=== PATIENT | female | born 1955 | race Two or more races ===

== ENCOUNTER 2017-03-12 15:29 | Emergency (ER) | payer SELFPAY ==
[2017-03-12 15:36] VITALS: BP 188/95
[2017-03-12] MEDS ORDERED: Ketorolac INJ* 60 MG/2 ML VIAL IM ONE (16:37)
[2017-03-12] MEDS ORDERED: Cyclobenzaprine TAB* 10 MG PO ONE (16:37)
--- NOTE | 2017-03-12 16:58 | ED ---
Back Pain - HPI Summary HPI Summary: 61F presents with lower back pain for a week. She states the pain was being managed with a steroid but today was last day of steroid and pain has increased again. She denies any injury. She has never had imaging of her back before. She denies any pain or numbness or tingling into her legs. She denies any loss of bowel or bladder or saddle anesthesia. 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 She has been taking aleve for her pain. She denies any fever. - History of Current Complaint Chief Complaint: EDBackInjuryPain Stated Complaint: LOWER BACK PAIN Time Seen by Provider: 03/12/17 16:09 Pain Intensity: 10 - Allergies/Home Medications Allergies/Adverse Reactions: Allergies Allergy/AdvReac Type Severity Reaction Status Date / Time No Known Allergies Allergy Verified 04/04/14 12:57 PMH/Surg Hx/FS Hx/Imm Hx Endocrine/Hematology History: Denies: Hx Anticoagulant Therapy Respiratory History: Denies: Hx Asthma - Cancer History Hx Chemotherapy: No Hx Radiation Therapy: No Infectious Disease History: No Infectious Disease History: Denies: Traveled Outside the [place] in Last 30 Days - Family History Known Family History: Positive: Hypertension - Social History Alcohol Use: None Substance Use Type: Reports: None Smoking Status (MU): Never Smoked Tobacco Review of Systems Negative: Fever Negative: Chest Pain Negative: Shortness Of Breath Positive: Myalgia - back pain All Other Systems Reviewed And Are Negative: Yes Physical Exam Triage Information Reviewed: Yes Vital Signs On Initial Exam: Initial Vitals Temp Pulse Resp BP Pulse Ox 97.9 F 93 18 188/95 100 03/12/17 15:32 03/12/17 15:32 03/12/17 15:32 03/12/17 15:32 03/12/17 15:32 Vital Signs Reviewed: Yes Appearance: Positive: Well-Appearing - appears uncomforable Skin: Positive: Warm, Dry Head/Face: Positive: Normal Head/Face Inspection Eyes: Positive: Normal, Conjunctiva Clear Respiratory/Lung Sounds: Positive: Clear to Auscultation, Breath Sounds Present Cardiovascular: Positive: Normal, RRR Musculoskeletal: Positive: Strength/ROM Intact - lower extremity, Limited @ - back due to pain, Other - good pulses, neg SLR, patella intact, good strength lower extremity, Diagnostics - Vital Signs Vital Signs Temp Pulse Resp BP Pulse Ox 03/12/17 15:32 97.9 F 93 18 188/95 100 - Laboratory Lab Statement: Any lab studies that have been ordered have been reviewed, and results considered in the medical decision making process. - Radiology back Xray Interpretation: Positive (See Comments) - IMPRESSION: DEGENERATIVE DISC DISEASE AND OSTEOARTHRITIS, MOST PRONOUNCED AT L4-L5 AND L5-S1 Radiology Interpretation Completed By: Radiologist Back Pain Course/Dx - Course Course Of Treatment: 61F presents with back pain for one week. denies any injury. no saddle anasthesia or loss of bowel or bladdernever imaging of back so got xray shows degenerative changes. neg SLR. tender to lower back. gave toradol and flexeril and helped with pain. will have contine flexeril. patient understands and agrees with plan - Diagnoses Differential Diagnosis/HQI/PQRI: Positive: Fracture, Strain, Sprain Provider Diagnoses: Back pain Discharge - Discharge Plan Condition: Good Disposition: HOME Prescriptions: Cyclobenzaprine TAB* [Flexeril 10 MG TAB*] 10 mg PO TID PRN #9 tab PRN Reason: Pain Methylprednisolone [Medrol Dosepak 4 MG*] 4 mg PO .SEE JAYSON INSTRUCTION #1 packet Patient Education Materials: Back Pain (ED) Referrals: Radha Haque MD [Primary Care Provider] - Additional Instructions: Follow directions on package for Medrol pack Take muscle relaxers three times a day for 3 days Use ibuprofen or Tylenol for pain every 6 hours ice/heat area, move as much as possible Follow up with primary within 5 days Return to ED if unable to ambulate or develop any new or worsening symptoms
--- NOTE | 2017-03-12 17:53 | RAD ---
HISTORY: Low back pain COMPARISONS: December 12, 2007 VIEWS: 5 , Frontal, lateral, coned-down lateral sacral, and bilateral oblique views of the lumbar spine. FINDINGS: ALIGNMENT: The alignment is normal. VERTEBRAL BODIES: The vertebral body heights are normal. The interpedicular distances are normal. There is mild anterolateral osteophyte formation. JOINTS: There is facet hypertrophic change at L4-L5 and L5-S1 INTERVERTEBRAL DISCS: There is diffuse loss of intervertebral disc height. SOFT TISSUE: Unremarkable. OTHER: The pelvis is unremarkable. The lung bases are clear. IMPRESSION: DEGENERATIVE DISC DISEASE AND OSTEOARTHRITIS, MOST PRONOUNCED AT L4-L5 AND L5-S1
== END 2017-03-12 18:03 | disposition home or self-care (01) ==
LOC: ED 15:29
DX: M54.5 Low back pain (principal); M51.37 Other intervertebral disc degeneration, lumbosacral region
CPT/HCPCS: 72110; 99282; A9270-GY; J1885

== ENCOUNTER 2018-01-29 10:19 | Emergency (ER) | payer OTHER ==
[2018-01-29 10:39] VITALS: BP 165/97
[2018-01-29] MEDS ORDERED: Tetan/Diph/Pertus SYR(Tdap)* 0.5 ML SYR(BOOSTRIX) use SYR IM ONE (10:42)
--- NOTE | 2018-01-29 11:34 | RAD ---
HISTORY: Right arm pain, trauma COMPARISONS: None VIEWS: 4, Frontal internal rotation, external rotation, outlet, and axillary views of the right shoulder FINDINGS: BONE DENSITY: Normal. BONES: There is no displaced fracture. JOINTS: There is mild osteoarthritis of the right AC joint. ALIGNMENT: There is no dislocation. SOFT TISSUES: Unremarkable. OTHER FINDINGS: None. IMPRESSION: NO ACUTE OSSEOUS INJURY. IF SYMPTOMS PERSIST, RECOMMEND REPEAT IMAGING.
--- NOTE | 2018-01-29 11:35 | RAD ---
Indication: Right elbow injury. 4 views of the right elbow demonstrates no fracture. No evidence of joint effusion is noted. Posterior olecranon osteophyte formation is noted. There is irregularity in the medial epicondyles. Possibility of a fracture of the medial epicondyles should BE considered. IMPRESSION: No joint effusion is noted however irregularity is noted in the medial epicondyles fracture is not excluded.
--- NOTE | 2018-01-29 11:36 | RAD ---
HISTORY: Right arm pain, injury COMPARISONS: None VIEWS: 4, Frontal and lateral views of the right hand and wrist FINDINGS: BONE DENSITY: Normal. BONES: There is no displaced fracture. JOINTS: There is no arthropathy. ALIGNMENT: There is no dislocation. SOFT TISSUES: Unremarkable. OTHER FINDINGS: None. IMPRESSION: NO ACUTE OSSEOUS INJURY TO THE RIGHT HAND OR RIGHT WRIST. IF SYMPTOMS PERSIST, RECOMMEND REPEAT IMAGING.
--- NOTE | 2018-01-29 17:41 | UC ---
Kiko Whiting Angela, scribed for Landry Wilkes MD on 01/29/18 at 1038 . Minor Trauma HPI - HPI Summary HPI Summary: This pt is a 62 y/o female presenting to [facility] c/o right shoulder, right elbow, and right hand pain s/p fall today. Pt reports she was at work today going down the stairs when she tripped and fell about 4 steps down. She notes she fell on the right side of her body. Denies LOC or head strike. She denies neck pain or head contusion. Pt is unsure of her last tetanus shot. - History of Current Complaint Chief Complaint: UCUpperExtremity Stated Complaint: FALL INJURY Hx Obtained From: Patient Onset/Duration: Sudden Onset, Still Present Onset Of Pain: Immediate Severity Currently: Moderate Pain Intensity: 5 Pain Scale Used: 0-10 Numeric Mechanism Of Injury: Blunt Trauma, Fall From Height Of: - 4 steps Aggravating Factor(s): Nothing Alleviating Factor(s): Nothing Associated Signs And Symptoms: Positive: Other: - abrasion to right elbow. Negative: Loss Of Consciousness, Ecchymosis, Swelling - Allergies/Home Medications Allergies/Adverse Reactions: Allergies Allergy/AdvReac Type Severity Reaction Status Date / Time No Known Allergies Allergy Verified 01/29/18 10:36 PMH/Surg Hx/FS Hx/Imm Hx Other Endocrine History: DENIES: diabetes Other Cardiovascular History: DENIES: HTN GI/ History: Gastroesophageal Reflux Other History Of: Negative For: Anticoagulant Therapy - Surgical History Surgical History: Yes Surgery Procedure, Year, and Place: Hysterectomy - Family History Known Family History: Positive: Hypertension, Diabetes - Social History Alcohol Use: None Substance Use Type: None Smoking Status (MU): Never Smoked Tobacco Review of Systems Constitutional: Negative Skin: Negative Eyes: Negative ENT: Negative Respiratory: Negative Cardiovascular: Negative Gastrointestinal: Negative Genitourinary: Negative Motor: Negative Neurovascular: Negative Musculoskeletal: Other: - POS: right shoulder pain, right elbow pain, right hand pain. NEG: neck pain, head contusion Neurological: Negative Psychological: Negative All Other Systems Reviewed And Are Negative: Yes Physical Exam - Summary Physical Exam Summary: VITAL SIGNS: Reviewed. GENERAL: Patient is a well-developed and nourished female who is lying comfortable in the stretcher. Patient is not in any acute respiratory distress. HEAD AND FACE: Normocephalic EYES: PERRLA, EOMI x 2. EARS: Hearing grossly intact. MOUTH: Oropharynx within normal limits. NECK: Supple, trachea is midline, no adenopathy, no JVD, no carotid bruit. CHEST: Symmetric, no tenderness at palpation LUNGS: Clear to auscultation bilaterally. No wheezing or crackles. CVS: Regular rate and rhythm, S1 and S2 present, no murmurs or gallops appreciated. ABDOMEN: Soft, non-tender. Bowel sounds are normal. No abdominal abnormal pulsations. EXTREMITIES: Full ROM in all major joints, no edema, no cyanosis or clubbing. Tenderness over the right shoulder and right elbow. No deformity. No hematoma. Neurovascular intact. NEURO: Alert and oriented x 3. No acute neurological deficits. Speech is normal and follows commands. SKIN: Dry and warm. Abrasion on the right elbow. Triage Information Reviewed: Yes Vital Signs: Initial Vital Signs Temp 98.7 F 01/29/18 10:33 Pulse 112 01/29/18 10:33 Resp 16 01/29/18 10:33 Pulse Ox 98 01/29/18 10:33 Vital Signs Reviewed: Yes Procedures - Splinting Location: right elbow Hand-Made Type: orthoglass Pre-Proc Neuro Vasc Exam: normal Post-Proc Neuro Vasc Exam: normal Diagnostics - Radiology Right elbow XR Xray Interpretation: Positive (See Comments) - IMPRESSION: No joint effusion is noted however irregularity is noted in the medial epicondyles fracture is not excluded. Dr. Wilkes has reviewed this radiology report. Radiology Interpretation Completed By: Radiologist Right hand XR Xray Interpretation: No Acute Changes - IMPRESSION: No acute osseous injury to the right hand or right wrist. If symptoms persist, recommend repeat imaging. Dr. Wilkes has reviewed this radiology report Radiology Interpretation Completed By: Radiologist Right shoulder XR Xray Interpretation: No Acute Changes - IMPRESSION: No acute osseous injury. If symptoms persist, recommend repeat imaging. Dr. Wilkes has reviewed this radiology report. Radiology Interpretation Completed By: Radiologist Right wrist XR Xray Interpretation: No Acute Changes - IMPRESSION: No acute osseous injury to the right hand or right wrist. If symptoms persist, recommend repeat imaging. Dr. Wilkes has reviewed this radiology report. Radiology Interpretation Completed By: Radiologist Re-Evaluation - Re-Evaluation First Eval Re-Evaluation Time: 11:55 Comment: I reviewed the XR results with the pt. I placed a posterior split. Minor Trauma Course/Dx - Course Course Of Treatment: This pt is a 62 y/o female presenting to [facility] c/o right shoulder, right elbow, and right hand pain s/p fall today. Pt reports she was at work today going down the stairs when she tripped and fell about 4 steps down. She notes she fell on the right side of her body. Denies LOC or head strike. She denies neck pain or head contusion. Pt is unsure of her last tetanus shot. Right wrist and hand XR shows no acute osseous injury to the right hand or right wrist. If symptoms persist, recommend repeat imaging. Right shoulder XR shows no acute fracture or dislocation. Right elbow XR reveals no joint effusion is noted however irregularity is noted in the medial epicondyles fracture is not excluded. In the UC course the pt was given a tetanus boostrix. I placed a posterior splint on the right elbow. Pre and post procedure pt is neurovascular intact. Therefore pt will be discharged home with follow up from orthopedics for a questionable right elbow fracture. Pt was placed in a shoulder sling prior to discharge. I discussed all the findings and XR results with the patient. Pt was instructed to return to the urgent care or go to ER immediately if any of the symptoms return or worsens. Plan of care was discussed with the patient and pt understands and agrees. All questions were answered to patient satisfaction. There were no further complaints or concerns. Pt is hemodynamically stable, alert and oriented x3. The patient was found to have increased blood pressure in UC. The patient will follow up with PCP for better control of BP. - Differential Dx/Diagnosis Provider Diagnoses: Contusion. Questionable right elbow fracture Discharge - Sign-Out/Discharge Documenting (check all that apply): Discharge - discharge to home - Discharge Plan Condition: Stable Disposition: HOME Patient Education Materials: Elbow Fracture (ED), Contusion in Adults (ED), Arthralgia (ED) Forms: *Work Release Referrals: Nitin Arizmendi MD [Medical Doctor] - Radha Haque MD [Primary Care Provider] - Additional Instructions: Please follow up with orthopedics, Dr. Arizmendi. FOLLOW UP WITH YOUR PRIMARY CARE PROVIDER WITHIN ONE WEEK FOR HIGH BLOOD PRESSURE NOTED TODAY. RETURN TO URGENT CARE OR THE ED FOR ANY WORSENING OR NEW SYMPTOMS. The documentation as recorded by the Kiko vuong Angela accurately reflects the service I personally performed and the decisions made by , Landry Wilkes MD.
== END 2018-01-29 12:28 | disposition home or self-care (01) ==
LOC: UCEAST 10:19
DX: S50.01XA Contusion of right elbow, initial encounter (principal); W10.9XXA Fall (on) (from) unspecified stairs and steps, initial encounter; Y93.9 Activity, unspecified; Y92.9 Unspecified place or not applicable; M25.511 Pain in right shoulder; M79.641 Pain in right hand; M25.521 Pain in right elbow; K21.9 Gastro-esophageal reflux disease without esophagitis
CPT/HCPCS: 90715; 99212; G0463

== ENCOUNTER 2018-04-19 20:11 | Emergency (ER) | payer OTHER ==
--- NOTE | 2018-04-19 21:17 | RAD ---
INDICATION: Bilateral knee pain after a slip and fall injury COMPARISON: None TECHNIQUE: 4 view radiograph of each knee. FINDINGS: The visualized bones are well-corticated and properly aligned. The joint spaces are properly maintained. There is no radiographic evidence of joint effusion. There is no acute fracture, dislocation or other focal bony abnormality. IMPRESSION: Normal radiograph of the bilateral knees as described above. If the patient's symptoms persist, follow-up imaging is recommended.
--- NOTE | 2018-04-19 21:18 | RAD ---
Indication: Left leg pain after a slip and fall injury Comparison: None. Technique: AP and lateral views left lower leg. Report: The visualized bones are adequately corticated and well aligned. There is no acute fracture, dislocation or other focal abnormality. The soft tissues appear grossly normal. IMPRESSION: Normal left lower leg radiograph. If the patient's symptoms persist, follow-up imaging is recommended.
--- NOTE | 2018-04-19 21:18 | RAD ---
INDICATION: Right great toe pain after a slip and fall injury TECHNIQUE: 3 views of the right great toe were obtained. FINDINGS: The visualized bones are normal alignment. Joint spaces appear maintained. No fracture is seen. IMPRESSION: NO EVIDENCE FOR FRACTURE. IF THE PATIENT'S SYMPTOMS PERSIST RECOMMEND FOLLOW-UP IMAGING.
--- NOTE | 2018-04-19 21:20 | ED ---
Lower Extremity - HPI Summary HPI Summary: 62-year-old female presents with lower extremity injury after a fall today. States she was in [facility] and her cart got away from her and she slipped and ended up going a half split. She states that it pulled on her right shoulder and she's been having right hip pain. She is able to ambulate. She fell onto her knees. She has a bruise noted to her left mims. She also stubbed her right toe. no previous injury to the area. She denies any other injury. fall was mechanical fall. She is not on blood thinners. No head injury or loss consciousness. - History of Current Complaint Chief Complaint: EDGeneral Stated Complaint: FALL/PAIN Time Seen by Provider: 04/19/18 20:27 Pain Intensity: 10 - Allergies/Home Medications Allergies/Adverse Reactions: Allergies Allergy/AdvReac Type Severity Reaction Status Date / Time No Known Allergies Allergy Verified 01/29/18 10:36 PMH/Surg Hx/FS Hx/Imm Hx Endocrine/Hematology History: Denies: Hx Anticoagulant Therapy Respiratory History: Denies: Hx Asthma - Cancer History Hx Chemotherapy: No Hx Radiation Therapy: No - Surgical History Surgery Procedure, Year, and Place: Hysterectomy Infectious Disease History: No Infectious Disease History: Denies: Traveled Outside the [place] in Last 30 Days - Family History Known Family History: Positive: Hypertension, Diabetes - Social History Alcohol Use: None Substance Use Type: Reports: None Smoking Status (MU): Never Smoked Tobacco Review of Systems Negative: Fever Negative: Chest Pain Negative: Shortness Of Breath Positive: Myalgia - lower leg pain, right shoulder pain All Other Systems Reviewed And Are Negative: Yes Physical Exam Triage Information Reviewed: Yes Vital Signs On Initial Exam: Initial Vitals Temp Pulse Resp BP Pulse Ox 98.4 F 84 16 193/97 99 04/19/18 20:22 04/19/18 20:22 04/19/18 20:22 04/19/18 20:22 04/19/18 20:22 Vital Signs Reviewed: Yes Appearance: Positive: Well-Appearing Skin: Positive: Warm, Dry Head/Face: Positive: Normal Head/Face Inspection Eyes: Positive: Normal, Conjunctiva Clear ENT: Positive: Pharynx normal Respiratory/Lung Sounds: Positive: Clear to Auscultation, Breath Sounds Present Cardiovascular: Positive: Normal, RRR Musculoskeletal: Positive: Strength/ROM Intact - right hip and shoulder, Limited @ - left knee with pain, Other - bruise noted to left mims, tenderness right great toe, tenderness bilateral patellas, good pulses, capillary refill<2 secs, Neurological: Positive: Normal Psychiatric: Positive: Normal Diagnostics - Vital Signs Vital Signs Temp Pulse Resp BP Pulse Ox 04/19/18 20:22 98.4 F 84 16 193/97 99 - Laboratory Lab Statement: Any lab studies that have been ordered have been reviewed, and results considered in the medical decision making process. - Radiology knee, lower extremtiy Xray Interpretation: No Acute Changes Radiology Interpretation Completed By: Radiologist toe Xray Interpretation: No Acute Changes Radiology Interpretation Completed By: Radiologist Lower Extremity Course/Dx - Course Course Of Treatment: 62-year-old female presents with lower extremity injury after a fall today. States she was in [facility] [employer] and her cart got away from her and she slipped and ended up going a half split. She states that it pulled on her right shoulder and she's been having right hip pain. She is able to ambulate. She fell onto her knees. She has a bruise noted to her left mims. She also stubbed her right toe. no previous injury to the area. She denies any other injury. fall was mechanical fall. She is not on blood thinners. No head injury or loss consciousness. on exam contusion noted to left mims. full ROM right shoulder and hip. neurovascular intact. tenderness bilateral patella. limited ROM right great toe. xray knees, and toe normal. did not get xray shoulder and hip due to full ROM. will treat with rice. patient understand and agrees with plan. - Diagnoses Differential Diagnosis/HQI/PQRI: Positive: Fracture (Closed), Sprain, Strain Provider Diagnoses: Right shoulder pain, Right hip pain, Bilateral knee pain, Pain of right great toe, Fall Discharge - Sign-Out/Discharge Documenting (check all that apply): Discharge/Admit/Transfer - Discharge Plan Condition: Good Disposition: HOME Patient Education Materials: Hip Sprain (ED), R.I.C.E. Treatment (ED) Referrals: [facility] [Outside] Additional Instructions: Take Tylenol or ibuprofen every 6 hours as needed for pain Apply ice, rest, elevate Establish care with primary care physician Return to ED if develop any new or worsening symptoms - Billing Disposition and Condition Condition: GOOD Disposition: Home
[2018-04-19 21:42] VITALS: BP 189/91
== END 2018-04-19 21:42 | disposition home or self-care (01) ==
LOC: ED 20:11
DX: M25.511 Pain in right shoulder (principal); M25.551 Pain in right hip; M79.674 Pain in right toe(s); M25.562 Pain in left knee; M25.561 Pain in right knee; W01.0XXA Fall on same level from slipping, tripping and stumbling without subsequent striking against object, initial encounter; Y92.512 Supermarket, store or market as the place of occurrence of the external cause
CPT/HCPCS: 99282